=== PATIENT | female | born 2000 | race Caucasian/White ===

== ENCOUNTER 2021-12-22 16:31 | Inpatient (IN) | payer OTHER ==
[~2021-12-22] VITALS: Ht 160 cm; Wt 68.0 kg
[~2021-12-22 16:31] MED LIST: COLACE 100MG C100 MG PO; FERROUS SULFAT325 M2 PO; IBUPROFEN600 MG PO; NORCO 5-325 TA1 EACH PO
[2021-12-22] MEDS ORDERED: PRENATAL VITAM1 EAC3 PO (17:44)
[2021-12-22 18:10] LABS: HEMOGLOBIN 12.7 gm/dl (12.3-15.3); RED BLOOD COUNT 4.32 M/UL (4.00-5.10); WHITE BLOOD COUNT 8.1 K/UL (4.5-11.0)
[2021-12-24 04:18] LABS: HEMOGLOBIN 10.7 gm/dl (12.3-15.3)
[2021-12-24] MEDS ORDERED: COLACE 100MG C100 MG PO (12:31)
[2021-12-24] MEDS ORDERED: IBUPROFEN800 MG PO (12:31)
== END 2021-12-24 16:47 | disposition home or self-care (01) | DRG 807 ==
LOC: GENOP 16:31 → OB 16:58
PROVIDERS: Obstetrics & Gynecology; ADMIT Obstetrics & Gynecology
PROC: 4A1HXCZ Monitoring of Products of Conception, Cardiac Rate, External Approach (ICD-10-PCS; 2021-12-22)
PROC: 10E0XZZ Delivery of Products of Conception, External Approach (ICD-10-PCS; principal; 2021-12-23)
PROC: 0KQM0ZZ Repair Perineum Muscle, Open Approach (ICD-10-PCS; 2021-12-23)
PROC: 3E033VJ Introduction of Other Hormone into Peripheral Vein, Percutaneous Approach (ICD-10-PCS; 2021-12-23)
DX: O36.63X0 Maternal care for excessive fetal growth, third trimester, not applicable or unspecified (principal); Z37.0 Single live birth; Z20.822 Contact with and (suspected) exposure to COVID-19; Z3A.39 39 weeks gestation of pregnancy; O70.1 Second degree perineal laceration during delivery; Z88.1 Allergy status to other antibiotic agents; Z88.0 Allergy status to penicillin; Z88.2 Allergy status to sulfonamides; Z83.3 Family history of diabetes mellitus; Z80.9 Family history of malignant neoplasm, unspecified; Z82.49 Family history of ischemic heart disease and other diseases of the circulatory system; Z28.310 Unvaccinated for COVID-19
CPT/HCPCS: 36415; 81001; 82800; 85014; 85018; 85025; J2590; J7120; U0002